=== PATIENT | female | born 1940 | race Two or more races ===

== ENCOUNTER 2021-02-15 16:11 | Outpatient (CLI) | payer OTHER | END 2021-02-15 16:17 | disposition home or self-care (01) | LOC: RAD 16:11 | PROVIDERS: ATTEND Specialist | DX: J45.998 Other asthma (principal) ==

== ENCOUNTER 2021-04-04 09:46 | Outpatient (CLI) | payer OTHER | END 2021-04-04 09:56 | disposition home or self-care (01) | LOC: SONOGRAMA 09:46 | PROVIDERS: ATTEND Specialist | DX: M75.101 Unspecified rotator cuff tear or rupture of right shoulder, not specified as traumatic (principal); M25.511 Pain in right shoulder ==

== ENCOUNTER 2021-06-16 11:54 | Outpatient (CLI) | payer OTHER | END 2021-06-16 12:04 | disposition home or self-care (01) | LOC: SONOGRAMA 11:54 | PROVIDERS: ATTEND Student in an Organized Health Care Education/Training Program | DX: N28.89 Other specified disorders of kidney and ureter (principal); N39.0 Urinary tract infection, site not specified ==

== ENCOUNTER 2023-02-06 12:02 | Outpatient (CLI) | payer OTHER | END 2023-02-06 12:09 | disposition home or self-care (01) | LOC: RAD 12:02 | PROVIDERS: ATTEND Internal Medicine | DX: S80.912A Unspecified superficial injury of left knee, initial encounter (principal) ==

== ENCOUNTER 2023-03-05 10:57 | Outpatient (CLI) | payer OTHER | END 2023-03-05 10:59 | disposition home or self-care (01) | LOC: NUCLEAR 10:57 | PROVIDERS: ATTEND Internal Medicine | DX: I87.2 Venous insufficiency (chronic) (peripheral) (principal) ==